=== PATIENT | male | born 1950 | race Caucasian/White ===

== ENCOUNTER 2023-01-11 08:00 | Outpatient (RCR) | payer OTHER, SELFPAY | END 2023-01-11 14:15 | disposition home or self-care (01) | LOC: CR 08:00 | PROVIDERS: PCP Family Medicine | DX: Z95.5 Presence of coronary angioplasty implant and graft (principal); Z95.2 Presence of prosthetic heart valve ==

== ENCOUNTER 2025-01-20 09:45 | Outpatient (OUT) | payer OTHER, SELFPAY ==
--- NOTE | 2025-01-20 09:52 | CA_ITS ---
Patient Name: ISELA POLLACK MR#: [id number] : 1950 Exam Date: 01/20/2025 Ordering Doctor: DR. SABIHA HOLLINS ECHOCARDIOGRAM REPORT PROCEDURE: CA ECHO DOPPLER COMPLETE INDICATIONS: CAD COMPARISON: None. DESCRIPTION: COMPLETE ECHOCARDIOGRAM Real-time transthoracic echocardiography with 2D, M-mode, spectral and color flow Doppler performed. QUALITY: Technical quality was good. LEFT VENTRICLE: Normal chamber size. Thickened septal wall. Global left ventricular systolic function is normal. LV EF: Estimated left ventricular ejection fraction is 55-60%. DIASTOLIC: Grade 2 diastolic dysfunction. ATRIAL SEPTUM: LEFT ATRIUM: Severe dilatation. RIGHT ATRIUM: Moderate dilatation. RIGHT VENTRICLE: Normal chamber size. Normal right ventricular systolic function. TRICUSPID VALVE: Normal mobility and thickness. No stenosis with trivial regurgitation. Mild pulmonary hypertension. RVSP 39 mmHg MITRAL VALVE: Normal mobility and thickness. No evidence of mitral valve stenosis. There is no mitral annular calcification. Mild to moderate mitral regurgitation. AORTIC VALVE: Bio-Prosthetic valve appears well seated in the aortic position with normal doppler flow. Mean systolic gradient is 13 mmHg. Mild perivalvular regurgitation. AORTIC ROOT: Normal diameter and appearance, measuring 3.0 cm. The ascending aorta is mildly dilated measuring 3.7 cm. PULMONIC VALVE: Normal thickness and mobility. No stenosis. Trivial regurgitation. PERICARDIUM: No evidence of pericardial effusion. IVC: Collapses with inspiration. Normal size. PLEURA: CONCLUSION: 1. The left ventricle is normal in size and exhibits normal systolic function. LVEF is estimated at 55 to 60%. 2. Normal right ventricular size and systolic function. 3. Moderate to severe biatrial dilatation. 4. Grade 2 diastolic dysfunction. 5. Bioprosthetic aortic valve is well-seated with normal Doppler flows and mild perivalvular regurgitation. 6. Mild to moderate mitral regurgitation. 7. Mildly elevated right-sided pressures. Adult Echocardiography Procedure Report Left Ventricle LVEDD (3.7 - 5.6 cm): 5.11 cm LVESD (2.2 - 4.0 cm): 3.50 cm LVIVS thickness (0.6 - 1.2 cm): 1.75 cm LVPW thickness (0.5 - 1.0 cm): 1.29 cm e': 0.09 m/s E - e': 7.27 LVOT Max Gradient: 3.36 mm[Hg], 2.75 mm[Hg] LVOT Area (cm2): 0.87 m/s Peak Velocity (LVOT): 0.92 m/s, 0.83 m/s Mean Velocity (LVOT): 0.57 m/s LVOT Diameter 2.24 cm Left Ventricular Ejection Fraction: 62.84 % Left Atrium LA Volume Index (2D A2C): 78.99 ml/m2 Left Atrium Systolic Dimension: 5.59 cm Mitral Valve MV E to A Ratio: 1.09 Mitral Valve A-Wave Peak Velocity: 0.57 m/s Mitral Valve E-Wave Peak Velocity: 0.62 m/s Right Ventricle RV Internal Diastolic Dimension: 4.99 cm Aorta AO Root Diam: 3.00 cm Ascending Ao Diam: 3.70 cm Aortic Valve AoV Area (Peak Colin): 1.50 cm2, 1.82 cm2, 1.75 cm2 AoV Area (VTI): 1.42 cm2, 1.47 cm2, 1.90 cm2 Peak Velocity(Antegrade Flow): 1.98 m/s, 1.86 m/s, 2.73 m/s, 2.57 m/s Peak Gradient(Antegrade Flow): 15.61 mm[Hg], 13.77 mm[Hg], 29.74 mm[Hg], 26.50 mm[Hg] Mean Velocity(Antegrade Flow): 1.30 m/s, 1.48 m/s, 1.63 m/s, 1.45 m/s Mean Gradient(Antegrade Flow): 7.77 mm[Hg], 9.32 mm[Hg], 13.08 mm[Hg], 10.69 mm[Hg] Velocity Time Integral: 48.12 cm, 45.61 cm, 70.40 cm, 57.64 cm Tricuspid Valve Peak Velocity (Regurgitant Flow): 2.87 m/s, 3.03 m/s Pulmonic Valve Mean Gradient: 1.82 mm[Hg], 2.15 mm[Hg] Mean Velocity: 0.63 m/s, 0.70 m/s Peak Velocity: 0.94 m/s Peak Gradient: 3.21 mm[Hg], 3.81 mm[Hg] Right Atrium Right Atrium Systolic Pressure: 53.58 ml, 53.58 ml Dictated by: Diogenes Pearson M.D. on 01/20/2025 at 18:25 Approved by: Diogenes Pearson M.D. on 01/20/2025 at 18:40
== END 2025-01-20 09:46 | disposition home or self-care (01) ==
LOC: CARD 09:47
PROVIDERS: PCP Family Medicine; Visit Provider Chiropractor
DX: I25.10 Atherosclerotic heart disease of native coronary artery without angina pectoris (principal)
CPT/HCPCS: 93306

== ENCOUNTER 2025-05-12 09:37 | Outpatient (OUT) | payer OTHER, SELFPAY ==
--- OUTSIDE RECORDS SUMMARY | 2025-01-16 08:00 | XMS_ITS | Encounter Summary ---
Author Organization [facility] Address [address] [place] [address] Phone Care Team Providers Care Senior Reliability Engineer Name Role Phone Damaris Way MD Primary Care Provider [facility] e [facility], Other Unavailable [phone] Nancie Stack DMD Unavailable [phone] Pavithra Duffy DDS Unavailable + Reason for Visit * ReasonCommentsDental Imaging * Radiology (Routine) - New RequestSpecialtyDiagnoses / ProceduresReferred By ContactReferred To ContactDentistry Diagnoses Missing teeth, acquired Nancie Stack DMD Phone: tel: fax: Referral IDStatusReasonStart DateExpiration DateVisits RequestedVisits [id number] Request/ Encounter Details DateTypeDepartmentCare Team (Latest Contact Info)Vdzxuhoexfm29/17/2025 9:00 AM EDTClinical Support Encounter buckler and lacer [address], [address] [place] [address] Nancie Stack DMD [address] [place] [address] Josue Whiting DMD [address], [address] [place] [address] (work) Encounter for dental examination (Primary Dx) Social History Tobacco UseTypesPacks/DayYears UsedDateSmoking Tobacco: FormerCigarettes Comments:quit in 1991 Alcohol UseStandard Drinks/WeekCommentsNo0 (1 standard drink = 0.6 oz pure alcohol)Weekly until 2013Sex and Gender InformationValueDate RecordedSex Assigned at BirthNot on fileLegal MzwOsty7508/05/2012 8:58 AM ESTGender Identity Not on fileSexual OrientationNot on filedocumented as of this encounter Progress Notes * Sandra Nj DMD - 01/16/2025 9:00 AM EDT See note associated with encounter documented in this encounter Miscellaneous Notes * Addendum Note - Kimani Zapata - 01/16/2025 9:00 AM EDTAddended by: KIMANI ZAPATA on: 05/02/2025 03:16 PM Modules accepted: Orders * Addendum Note - Kimani Zapata - 01/16/2025 9:00 AM EDTAddended by: KIMANI ZAPATA on: 05/05/2025 10:39 AM Modules accepted: Orders * Addendum Note - Kimani Zapata - 01/16/2025 9:00 AM EDTAddended by: KIMANI ZAPATA on: 05/07/2025 08:00 AM Modules accepted: Orders documented in this encounter Plan of Treatment Not on file documented as of this encounter Procedures Procedure NamePriorityDate/TimeAssociated DiagnosisCommentsCONE BEAM CT CAPTURE AND INTERPRETATION WITH FIELD OF VIEW OF BOTH JAWS; WITH OR WITHOUT CRANIUM Wghqtmp4305/07/2025 8:01 AM EST Encounter for dental examination CONE BEAM CT CAPTURE AND INTERPRETATION WITH FIELD OF VIEW OF BOTH JAWS; WITH OR WITHOUT MATHGHISvxyots40/17/2025 9:00 AM EDT Encounter for dental examination documented in this encounter Results * CONE BEAM CT CAPTURE AND INTERPRETATION WITH FIELD OF VIEW OF BOTH JAWS; WITH OR WITHOUT CRANIUM (05/07/2025 8:01 AM EST)ComponentValueRef RangeTest Method Analysis TimePerformed AtPathologist SignatureBSA2.44o9Bauktvqtzt Region LateralityModalityOtherSpecimen (Source)Anatomical Location / Laterality Collection Method / VolumeCollection TimeReceived Time Impressions 05/08/2025 11:29 AM EST 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 Please correlate with clinical findings. Paranasal Sinuses Mucositis, both maxillary sinuses Sinusitis, right posterior ethmoid air cells. Cervical Spine Osteoarthrosis Other Cervical carotid artery calcifications, referral to primary care physician is recommended. Parasellar carotid artery calcifications Vertebral artery calcification [facility] [employer] Division of Oral & Maxillofacial Radiology [address] [place] [address] Narrative 05/08/2025 11:29 AM EST CBCT Report IMAGING TECHNIQUE A Cone Beam Computed Tomography of the skull and cervical vertebrae was examined. There is metallic and motion artifact, which reduces the diagnostic quality of some portions of the volume. IMAGING FINDINGS Dentoalveolar Edentulous maxillae and mandible. Due to metallic artifacts is difficult to assess the bone around present implants. There appears to be bone loss associated with implants in regions of #1, #26-27. Please correlate with clinical findings. TMJ There is no evidence of pathosis in the visualized osseous components of the TMJs. Paranasal Sinuses The portrayed borders of the paranasal sinuses appear to be intact. There is localized thickening of the soft tissue of the right and left maxillary sinus, consistent with mucositis. There is generalized thickening of the soft tissue of some of the posterior right ethmoid air cells, consistent with sinusitis. The ostiomeatal complexes appear to be patent. Airway The visualized portions of the airway appear patent. Cervical Spine Portions of the first through sixth cervical vertebrae are depicted. ?? There are degenerative changes in some of the portrayed portions of these vertebrae; the appearance is consistent with osteoarthrosis. There is a normal width of prevertebral soft tissue. Other There are multiple, prominent, hyperdense entities in the soft tissue of the neck in the region of the right and left carotid arteries. The appearance is consistent with carotid artery calcifications. Referral to primary care physician is recommended. There are multiple hyperdense entities in the parasellar region of the right and left carotid arteries. The appearance is consistent with carotid artery calcifications. There is a hyperdense entity in the clivus region of the right vertebral artery. The appearance is consistent with a vertebral artery calcification. 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 Authorizing ProviderResult TypeResult StatusDouglas A Porr DMDPR - DENTALFinal Result documented in this encounter Visit Diagnoses Diagnosis Encounter for dental examination- Primary Dental examination documented in this encounter Care Teams Team MemberRelationshipSpecialtyStart DateEnd Date Damaris Way MD [facility], Other [address] [facility] [address] [place] [address] 10/29/14 Nancie Stack DMD [address], [address] [place] [address] UgiiendtDgvzianuvqwjco47/4/25 Pavithra Duffy DDS [address] [place] [address] Program ZyicbsqaMkvobnksefdzvf59/4/25documented as of this encounter
--- OUTSIDE RECORDS SUMMARY | 2025-05-12 09:00 | XMS_ITS | Encounter Summary ---
Author Organization [facility] Address [address] [place] [address] Care Team Providers Care Access Manager Name Role Phone Unavailable Primary Care Provider Unavailabl e Reason for Visit * ReasonCommentsNew PatientPatient is here as a new patient to establish care. Patient is transferring care from [place] [facility]. Patient denies chest pain, SOB/PICKETT, leg swelling, abnormal bleeding/bruising, palpitations/racing heart. Patient has no cardiac complaints at this timeCoronary Artery Disease HypertensionHyperlipidemiaNSTEMIAbdominal aortic aneurysm without rupture Aneurysm of left common iliac arteryPeripheral Vascular DiseaseSTEMI involving left anterior descending coronary arteryValve Disorderfollow up of heart disease Encounter Details DateTypeDepartmentCare Team (Latest Contact Info)Jhyutckfxzx75/10/2025 9:00 AM ESTOffice Visit [facility] [address] [address] Chip Claire MD [address] [place] [address] History of transcatheter aortic valve replacement (TAVR) (Primary Dx); Abdominal aortic aneurysm (AAA) without rupture, unspecified part; Nonrheumatic aortic valve insufficiency; Coronary artery disease involving kenaitze coronary artery of kenaitze heart without angina pectoris Social History Tobacco UseTypesPacks/DayYears UsedDateSmoking Tobacco: FormerCigarettes Smokeless Tobacco: Never Tobacco Cessation:Counseling Given: Not Answered Sex and Gender InformationValueDate RecordedSex Assigned at PxnthYfpc86/10/2025 9:27 AM EDTLegal GfyErrm95/10/2025 9:23 AM EDTGender TmdmbpodDimu18/04/2025 9:27 AM EDTSexual OrientationHeterosexual or Txkgeohg64/10/2025 9:27 AM EDTdocumented as of this encounter Last Filed Vital Signs Vital SignReadingTime TakenCommentsBlood Sdbwtubh175/ 8:48 AM EST Kxdir089905/12/2025 8:48 AM ESTTemperature--Respiratory Rate--Oxygen Eofeyrhkfg51% 05/12/2025 8:48 AM ESTInhaled Oxygen Concentration--Tvjker559 kg (240 lb) 05/12/2025 8:48 AM HDNDdbqnr236.5 cm (6' 3 )05/12/2025 8:48 AM ESTBody Mass Blxdd2300/10/2025 8:48 AM ESTdocumented in this encounter Functional Status * BPAnswerDate of WiypqiajvyPnumbq265/ 8:48 AM Jessica Buckley MA * PulseAnswerDate of DyoqvfctlgZjzflm1423/10/2025 8:48 AM Jessica Buckley MA * Audit Alcohol ScreeningQuestionAnswerDate of AssessmentAuthorHow many standard drinks containing alcohol do you have on a typical day? 8:56 AM Jessica Artis MA * Patient PositionAnswerDate of BoiegwgppmCmqmneZptfcmb00/10/2025 8:48 AM Jessica Artis MA * BPAnswerDate of VwrouftaajBvnqqd638/7705/12/2025 8:48 AM Jessica Buckley MA * PulseAnswerDate of TrxewrkhueHkpoew8611/10/2025 8:48 AM Jessica Buckley MA * DyQ2XquuiwCrsv of NplrbrleccCibenb1742/10/2025 8:48 AM Jessica Buckley MA * BP LocationAnswerDate of AssessmentAutrRight arm05/12/2025 8:48 AM Jessica Artis MA * Audit Alcohol ScreeningQuestionAnswerDate of AssessmentAuthorHow many standard drinks containing alcohol do you have on a typical day? 8:56 AM Jessica Artis MA * Patient PositionAnswerDate of NfztegcjteTvfmtwZigfjnz35/10/2025 8:48 AM EST Jessica River MA documented as of this encounter Progress Notes * Chip Claire MD - 05/12/2025 9:00 AM EST Subjective Patient ID: Alexander Velásquez is a 75 y.o. male who presents for New Patient (Patient is here as a new patient to establish care. Patient is transferring care from [place] [facility]. Patient denies chestpain, SOB/PICKETT, leg swelling, abnormal bleeding/bruising, palpitations/racing heart. 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 100% better. No chest pains. Able to carry groceries, able to walk up the stairs. Takes medications daily. Coronary Artery Disease Pertinent negatives include no chest pain, leg swelling or palpitations. Risk factors include hyperlipidemia. Hypertension Pertinent negatives include no chest pain or palpitations. Hyperlipidemia Pertinent negatives include no chest pain. Review of Systems Cardiovascular: Negative for chest pain, palpitations and leg swelling. Gastrointestinal: Negative for blood in stool. Genitourinary: Negative for hematuria. Objective Visit Vitals BP 126/77 (BP Location: Right arm, Patient Position: Sitting) Pulse 63 Physical Exam Vitals reviewed. Constitutional: Appearance: Normal appearance. HENT: Head: Normocephalic and atraumatic. Comments: Unable to extend tongue Mouth/Throat: Comments: Muffled speech Cardiovascular: Rate and Rhythm: Normal rate and regular rhythm. Pulses: Carotid pulses are 2+ on the right side and 2+ on the left side. Radial pulses are 2+ on the right side and 2+ on the left side. Heart sounds: Murmur heard. Systolic murmur is present with a grade of 2/6. Decrescendo diastolic murmur is present with a grade of 1/4. No friction rub. No gallop. Pulmonary: Effort: Pulmonary effort is normal. Breath sounds: Normal breath sounds. Musculoskeletal: Right lower leg: No edema. Left lower leg: No edema. Skin: General: Skin is warm and dry. Neurological: General: No focal deficit present. Mental Status: He is alert and oriented to person, place, and time. Psychiatric: Mood and Affect: Mood normal. Behavior: Behavior normal. Thought Content: Thought content normal. Assessment/Plan Mr. Velásquez is doing well after L main stent TAVR aortic valve. He has mild aortic insufficiency. Last Hgb somewhat low at 10.9, will repeat and check smear, LDH and haptoglobin for hemolysis of paravalvular leak Diagnosis Plan 1. History of transcatheter aortic valve replacement (TAVR) ECG 12 lead unit performed 2. Abdominal aortic aneurysm (AAA) without rupture, unspecified part 3. Nonrheumatic aortic valve insufficiency 4. Coronary artery disease involving kenaitze coronary artery of kenaitze heart without angina pectoris Orders Placed This Encounter Procedures ECG 12 lead unit performed This back office order was created through the Back Office Visit Navigator section. Release to Patient: Immediately No results found for this or any previous visit (from the past 36 hours). Follow up in about 6 months (around 11/09/2025) for Recheck. documented in this encounter Plan of Treatment Not on file documented as of this encounter Procedures Procedure NamePriorityDate/TimeAssociated DiagnosisCommentsECG 12 LEAD UNIT VGXHWMZSVPccmryd20/10/2025 9:18 AM EST History of transcatheter aortic valve replacement (TAVR) documented in this encounter Results * ECG 12 lead unit performed (05/12/2025 9:18 AM EST)Specimen (Source)Anatomical Location / LateralityCollection Method / VolumeCollection TimeReceived Time Narrative Authorizing ProviderResult TypeResult StatusChristopher Dakotah GAMEZ ORDERABLES Final Result documented in this encounter Visit Diagnoses Diagnosis History of transcatheter aortic valve replacement (TAVR)- Primary Abdominal aortic aneurysm (AAA) without rupture, unspecified part Nonrheumatic aortic valve insufficiency Coronary artery disease involving kenaitze coronary artery of kenaitze heart without angina pectoris documented in this encounter
--- OUTSIDE RECORDS SUMMARY | 2025-05-12 09:43 | XMS_ITS | Encounter Summary ---
Author Organization [facility] Address [address] [address] Phone Care Team Providers Care User Experience Architect Name Role Phone Damaris Way MD Primary Care Provider [facility], Other Unavailable [phone] Nancie Stack DMD Unavailable [phone] Pavithra Duffy DDS Unavailable + Reason for Visit * ReasonOnset DateCommentsFollow-up05/08/2025Spoke with Patient and his about waht are next steps, they said there wa no radiaiotn mapping done, no xrays taken to determine if implants are feasible. told them will talk about case in implant meeting 05/09/25 and get answers, Encounter Details DateTypeDepartmentCare Team (Latest Contact Info)Suvfvklvrbg53/06/2025Telephone imaging administrator [address] [place] [address] Other Follow-up (Spoke with Patient and his about waht are next steps, they said there wa no radiaiotn mapping done, no xrays taken to determine if implants are feasible. told them will talk about case in implant meeting 05/09/25 and get answers,) Social History Tobacco UseTypesPacks/DayYears UsedDateSmoking Tobacco: FormerCigarettes Comments:quit in 1991 Alcohol UseStandard Drinks/WeekCommentsNo0 (1 standard drink = 0.6 oz pure alcohol)Weekly until 2013Sex and Gender InformationValueDate RecordedSex Assigned at BirthNot on fileLegal FbbPzxt35/08/2012 8:58 AM ESTGender Identity Not on fileSexual OrientationNot on filedocumented as of this encounter Plan of Treatment Not on file documented as of this encounter Visit Diagnoses Not on filedocumented in this encounter Care Teams Team MemberRelationshipSpecialtyStart DateEnd Date Damaris Way MD [facility] - [facility], Other [address] [facility] [address] [place] [address] 10/29/14 Nancie Stack, DEONDRE [address] [place] [address] DtsqbsmcKirrzktnbpewsl80/4/25 Pavithra Duffy DDS [address] [place] [address] Program ZwudyvikVcscccxgcjbgnk61/4/25documented as of this encounter
--- OUTSIDE RECORDS SUMMARY | 2025-05-12 09:43 | XMS_ITS | Encounter Summary ---
Author Organization [facility] Address [address] [address] Phone Care Team Providers Care Tracer Clerk Name Role Phone Damaris Way MD Primary Care Provider [facility] e [facility], Other Unavailable [phone] Nancie Stack DMD Unavailable [phone] Pavithra Duffy DDS Unavailable + Reason for Visit * ReasonOnset DateCommentsFollow-up05/06/2025Patient's called and wondered when his next appointment was. I called her back and found out that he needs dentures. Gave her the number to [employer] and then transferred her over there. He seeFarrah Stack. Encounter Details DateTypeDepartmentCare Team (Latest Contact Info)Cwvryecelmp50/04/2025Telephone rigger third [address], [address] [place] [address] Other Follow-up (Patient's called and wondered when his next appointment was. I called her back and found out that he needs dentures. Gave her the number to [employer] and then transferred her over there. He sees Dr Stack. ) Social History Tobacco UseTypesPacks/DayYears UsedDateSmoking Tobacco: FormerCigarettes Comments:quit in 1991 Alcohol UseStandard Drinks/WeekCommentsNo0 (1 standard drink = 0.6 oz pure alcohol)Weekly until 2013Sex and Gender InformationValueDate RecordedSex Assigned at BirthNot on fileLegal OxiBysi4608/05/2012 8:58 AM ESTGender Identity Not on fileSexual OrientationNot on filedocumented as of this encounter Plan of Treatment Not on file documented as of this encounter Visit Diagnoses Not on filedocumented in this encounter Care Teams Team MemberRelationshipSpecialtyStart DateEnd Date Damaris Way MD [facility] - [facility], Other [address] [facility] [address] [place] [address] 10/29/14 Nancie Stack, DEONDRE [address], [address] [place] [address] WaxozlpcLibmdxobiykspa40/4/25 Pavithra Duffy DDS [address] [place] [address] Program FjeroqzsHbmekzjcauydzh54/4/25documented as of this encounter
--- OUTSIDE RECORDS SUMMARY | 2025-05-12 09:43 | XMS_ITS | Encounter Summary ---
Author Organization [facility] Address [address] [place] [address] Care Team Providers Care Refrigeration Service Inspector Name Role Phone Unavailable Primary Care Provider Unavailabl e Encounter Details DateTypeDepartmentCare Team (Latest Contact Info)Sdowkxugjot71/10/2025Orders Only [facility] [place] [address] [place] [address] Lelia Shore MA Coronary artery disease, unspecified vessel or lesion type, unspecified whether angina present, unspecified whether [place] or transplanted heart (Primary Dx) Social History Tobacco UseTypesPacks/DayYears UsedDateSmoking Tobacco: FormerCigarettes Smokeless Tobacco: NeverSex and Gender InformationValueDate RecordedSex Assigned at HnmwtLlbq94/10/2025 9:27 AM EDTLegal IndWahc85/10/2025 9:23 AM EDTGender XwftoqjuIsjr18/10/2025 9:27 AM EDTSexual OrientationHeterosexual or Straight 04/11/2025 9:27 AM EDTdocumented as of this encounter Functional Status * BPAnswerDate of DxqfacmgboVpngqp352/7705/12/2025 8:48 AM Jessica Buckley MA * PulseAnswerDate of DtekahbawwRdaknh1362/10/2025 8:48 AM Jessica Buckley MA * Audit Alcohol ScreeningQuestionAnswerDate of AssessmentAuthorHow many standard drinks containing alcohol do you have on a typical day? 8:56 AM Jessica Artis MA * Patient PositionAnswerDate of OooddygppzCyyvpiYjujgon03/10/2025 8:48 AM Jessica Artis MA * BPAnswerDate of LpsexlyubkCrsmmd220/7705/12/2025 8:48 AM Jessica Buckley MA * PulseAnswerDate of McavlcxoouLbsbup8375/10/2025 8:48 AM Jessica Buckley MA * NwD1NixcoiRzyn of FkcgcnasxvDuvxhk4736/10/2025 8:48 AM Jessica Buckley MA * BP LocationAnswerDate of AssessmentAuthorRight arm05/12/2025 8:48 AM Jessica Artis MA * Audit Alcohol ScreeningQuestionAnswerDate of AssessmentAuthorHow many standard drinks containing alcohol do you have on a typical day? 8:56 AM Jessica Artis MA * Patient PositionAnswerDate of XsuadtiurjHhrqzfHvtrpcb84/10/2025 8:48 AM Jessica Artis MA documented as of this encounter Plan of Treatment NameTypePriorityAssociated DiagnosesOrder ScheduleCBC and differentialLabRoutine Coronary artery disease, unspecified vessel or lesion type, unspecified whether angina present, unspecified whether [place] or transplanted heart Expected: 05/12/2025 (Approximate), Expires: 05/12/2026HaptoglobinLabRoutine Coronary artery disease, unspecified vessel or lesion type, unspecified whether angina present, unspecified whether [place] or transplanted heart Expected: 05/12/2025 (Approximate), Expires: 05/12/2026Lactate dehydrogenaseLab Routine Coronary artery disease, unspecified vessel or lesion type, unspecified whether angina present, unspecified whether [place] or transplanted heart Expected: 05/12/2025 (Approximate), Expires: 05/12/2026documented as of this encounter Visit Diagnoses Diagnosis Coronary artery disease, unspecified vessel or lesion type, unspecified whether angina present, unspecified whether [place] or transplanted heart- Primary documented in this encounter
--- OUTSIDE RECORDS SUMMARY | 2025-05-12 09:44 | XMS_ITS | Encounter Summary ---
Author Organization [facility] enter Address [address] [place] [address] Care Team Providers Care Vice President Media Relations Name Role Phone Unavailable Primary Care Provider Unavailabl e Encounter Details DateTypeDepartmentCare Team (Latest Contact Info)Bfuyqpmqhcg46/26/1971 12:00 PM EDT - 10/31/1970 11:59 PM EDTHospital Encounter [facility] [address] [place] [address] Social History Tobacco UseTypesPacks/DayYears UsedDateSmoking Tobacco: Never AssessedSex and Gender InformationValueDate RecordedSex Assigned at BirthNot on fileLegal Sex Male08/05/2012 8:58 AM ESTGender IdentityNot on fileSexual OrientationNot on filedocumented as of this encounter Plan of Treatment Not on file documented as of this encounter Visit Diagnoses Not on filedocumented in this encounter
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
--- OUTSIDE RECORDS SUMMARY | 2025-05-12 09:44 | XMS_ITS | Clinical Summary ---
Author Organization [facility] Address [address] [place] [address] Care Team Providers Care Dive Supervisor Name Role Phone Unavailable Primary Care Provider Unavailabl e Allergies No known active allergies Medications MedicationSigDispense QuantityRefillsLast FilledStart DateEnd DateStatus aspirin 81 mg EC tablet Take 81 mg by mouth in the morning.Active atorvastatin (Lipitor) 80 mg tablet Take 80 mg by mouth in the morning.Active valsartan (Diovan) 160 mg tablet Take 160 mg by mouth in the morning.Active pantoprazole (ProtoNix) 40 mg EC tablet Take 40 mg by mouth before breakfast. Do not crush, chew, or split.Active magnesium oxide (MAGGEL ORAL) Take 420 mg by mouth in the morning.Active Active Problems ProblemNoted DateDiagnosed DateAbdominal aortic aneurysm (AAA) without rupture 05/12/2025 Overview (05/12/2025): May 25, 2010 Entered By: POOJA ARMENTA Comment: U/S: 04/19/10 AAA 3 cm Abdominal aortic modpytcn65/10/2025Accidental drowning and submersion while in bath-tub, rguzika71/10/2025Aneurysm of left common iliac wqvpgp1005/12/2025enign neoplasm of colon05/12/2025 Overview (05/12/2025): May 31, 2010 Entered By: WARREN AVELAR Comment: Repeat Surveillance Colonoscopy DUE 05/2017Jun 19, 2017 Entered By: JOSEFINA BLACKMON Comment: rpt surveillance c-scope 5-10 yrs; due 05/24/2022-05/24/2027 Closed head vwllsb365Cricopharyngeal cgninjkri78/10/2025Benign essential ghvrkenjjfhz71/10/2025Exposure to Agent Gabmbv8805/12/2025Gastroesophageal reflux ayspxsj2805/12/2025Harmful use of cofmacn5405/12/20251885Wnerjlaxwbk15/10/2025History of zbokzbkladmn82/10/2025History of colonic vtibfs0005/12/2025History of endovascular stent graft for abdominal aortic aneurysm (AAA)05/12/2025History of radiation bzhtjwz7905/12/20250479Kwpddvqanwklykictdmh50/10/5177Xijngqkpknusiv00/10/2025 Hypermetropia, qbyzvqjpl92/10/2025Inguinal gevlds0505/12/2025Encounter for screening for eye and ear afbdgotws41/10/2025Other specified counseling 05/12/2025Left against medical edriwn5705/12/2025Peripheral vascular disease, vpmztmhcmaj13/10/2025Near xjphncp3005/12/2025 Overview (05/12/2025): Problem List clean-up per request of Phys. EHR Ramonee Chest pain05/12/2025 Overview (05/12/2025): Problem List clean-up per request of Phys. EHR Cmte Pilar cyst05/12/2025Presence of other vascular implants and sgccog8705/12/2025 Squamous cell carcinoma of mouth05/12/20251255Hhavuqj95/10/2025Tobacco user 05/12/2025Obesity (BMI 30.0-34.9)03/24/2025History of transcatheter aortic valve replacement (TAVR)12/05/2024enign prostatic hmcfopwvfpu75/21/2025oronary ocxlaqzcvlqxahhb84/21/2025Essential qjtgypibqwug15/21/2025History of cerebrovascular ozufoadj86/21/2025Mixed opyziysryxjqsg93/21/2025Traumatic altzmwzrydzx76/21/2025Unspecified effects of drowning and nonfatal submersion, ssdjrme1511/20/2024bnormal igeqjadpspvegzmcvxk60/13/2025ute coronary syndrome 11/12/2024ngina pjgvowcj07/13/2025Septic shock11/12/2024oronary artery disease involving cachil dehe heart without angina hjgyxllc67/12/2025Non-ST elevation (NSTEMI) myocardial fhonfdblog11/12/2025Drowning and submersion after fall into bathtub, undetermined intent, initial cktyhyjlq11/11/2025Fatal submersion-ncygpfpvl96/11/2025S/P cardiac cath10/06/2022Hyperlipidemia LDL goal <7004S/P percutaneous transluminal angioplasty (VICTIM WITNESS ADMINISTRATOR) with stent vnaotapka21/06/2023Severe aortic tzkcyqju20/06/2023STEMI involving left anterior descending coronary tiyeta1510/04/2022History of radiation to head and neck region 08/25/20156791Xctstiuls10/01/2015 Overview (05/12/2025): described as chronic Tongue uexpag1903/25/2014History of tongue gdehtx8703/03/2014 Encounters DateTypeDepartmentCare LwqqKaathuzloqm81/10/2025 9:00 AM ESTOffice Visit [address] [address] Chip Claier MD History of transcatheter aortic valve replacement (TAVR) (Primary Dx); Abdominal aortic aneurysm (AAA) without rupture, unspecified part; Nonrheumatic aortic valve insufficiency; Coronary artery disease involving cachil dehe coronary artery of cachil dehe heart without angina fjsdhnov83/10/2025Orders Only [address] [address] Lelia Shore MA Coronary artery disease, unspecified vessel or lesion type, unspecified whether angina present, unspecified whether cachil dehe or transplanted heart (Primary Dx) from Last 3 Months Family History RelationNameStatusCommentsFatherDeceasedMotherDeceased Social History Tobacco UseTypesPacks/DayYears UsedDateSmoking Tobacco: FormerCigarettes Smokeless Tobacco: Never Tobacco Cessation:Counseling Given: Not Answered Sex and Gender InformationValueDate RecordedSex Assigned at JusiwFhqd63/10/2025 9:27 AM EDTLegal TfjPhut87/10/2025 9:23 AM EDTGender OersonevTnhq24/10/2025 9:27 AM EDTSexual OrientationHeterosexual or Qiyxazyl12/10/2025 9:27 AM EDT Last Filed Vital Signs Vital SignReadingTime TakenCommentsBlood Xwewikyt201/7705/12/2025 8:48 AM EST Luret205205/12/2025 8:48 AM ESTTemperature--Respiratory Rate--Oxygen Hhucbhwryz04% 05/12/2025 8:48 AM ESTInhaled Oxygen Concentration--Yhyqqm946 kg (240 lb) 05/12/2025 8:48 AM PRRGyncaz649.5 cm (6' 3 )05/12/2025 8:48 AM ESTBody Mass Ktebi8143/10/2025 8:48 AM EST Plan of Treatment Health MaintenanceDue DateLast DoneCommentsDepression Xzrdnpnci40/11/1960Fall Risk Ozvnghyql54/11/2013COVID-19 Vaccine ( season)2025 12/23/2024, 04/05/2024, 04/11/2023, Additional history existsAdult Tetanus 313Pneumococcal Vaccine: 50+ LllckEmdpdugdj44/07/2017, 12/10/2014, 07/29/2005Zoster MerpidnfTflhycokr06/22/2019, 03/26/2018Influenza VonjikpDibtqrbqe48/03/2025, 04/05/2024, 04/11/2023, Additional history existsHIB VaccinesAged OutNo longer eligible based on patient's age to complete this topic HPV VaccinesAged OutNo longer eligible based on patient's age to complete this topicIPV VaccinesAged OutNo longer eligible based on patient's age to complete this topicMeningococcal B VaccineAged OutNo longer eligible based on patient's age to complete this topicMeningococcal VaccineAged OutNo longer eligible based on patient's age to complete this topicRotavirus VaccinesAged OutNo longer eligible based on patient's age to complete this topic Procedures Procedure NamePriorityDate/TimeAssociated DiagnosisCommentsECG 12 LEAD UNIT SFFXTGIIPStcvjtv21/10/2025 9:18 AM EST History of transcatheter aortic valve replacement (TAVR) from Last 3 Months Results * ECG 12 lead unit performed (05/12/2025 9:18 AM EST)Specimen (Source)Anatomical Location / LateralityCollection Method / VolumeCollection TimeReceived Time Narrative Authorizing ProviderResult TypeResult StatusChristopher Dakotah MDECG ORDERABLES Final Result from Last [address] [place] [address]
--- OUTSIDE RECORDS SUMMARY | 2025-05-12 09:44 | XMS_ITS | Clinical Summary ---
Author Organization [facility] Address [id number] [address] [place] [address] Care Team Providers Care Recycle Driver Name Role Phone No Pcp, No Pcp Primary Care Provider Unavailabl e Allergies No known active allergies Medications MedicationSigDispense QuantityRefillsLast FilledStart DateEnd DateStatus omeprazole (PriLOSEC) 20 mg capsule Take 20 mg by mouth daily.Active lisinopril (PRINIVIL,ZESTRIL) 5 mg tablet Take 5 mg by mouth daily.Active atorvastatin (LIPITOR) 80 mg tablet Take 80 mg by mouth daily.Active aspirin 81 mg Take 81 mg by mouth daily.Active Active Problems No known active problems Family History Medical HistoryRelationNameCommentsCancerFatherDiabetesFatherHeart diseaseFather HypertensionFatherStrokeFatherCancerMotherDiabetesMotherRelationNameStatus CommentsFatherMother Social History Tobacco UseTypesPacks/DayYears UsedDateSmoking Tobacco: NeverSmokeless Tobacco: NeverAlcohol UseStandard Drinks/WeekCommentsYes0 (1 standard drink = 0.6 oz pure alcohol)ChildcareAnswerDate FphtlpxyGcoxfskkgHfmxbpe40/12/2019EmploymentAnswer Date FrsupckyJuotaiepomGwotjjr72/12/2019Purpose - LifeAnswerDate RecordedPurpose and direction in vesqIojaonx44/11/2021Sex and Gender InformationValueDate RecordedSex Assigned at BirthNot on fileLegal ZzeGqtk6902/05/2015 11:23 AM EDT Gender IdentityNot on fileSexual OrientationNot on file Last Filed Vital Signs Vital SignReadingTime TakenCommentsBlood Ztxxehky056/7310 8:45 AM EDT Dmpxm6108 8:45 AM WIAFwthxirjhcz51.4 ??C (97.5 ??F)04/18/2019 6:27 AM EDTRespiratory Hyet8663 8:45 AM EDTOxygen Eeipxdlife18%04/18/2019 8:45 AM EDTInhaled Oxygen Concentration--Epjlic713.3 kg (251 lb 15.8 oz)04/18/2019 6:27 AM RCCCphlkc062.5 cm (6' 3 )04/18/2019 6:27 AM EDTBody Mass Index31.5 04/18/2019 6:27 AM EDT Plan of Treatment Health MaintenanceDue DateLast DoneCommentsDepression Qgjufhncv05/11/1960Tobacco Xftccghll17/11/1960DTaP,Tdap and Td Vaccines (1 - Tdap)01/10/1967Zoster (Shingles) Vaccine (1 of 2)01/10/1998Fall Risk Dybkdjrxq95/11/2013RSV ( or age 60+ yrs) (1 - 1-dose 75+ series)01/10/2023Influenza Htzvvmi9403/03/2025 Medical Devices ImplantedTypeAreaManufacturerDevice IdentifierShelf Expiration DateModel / Serial / LotLens Iol Ultrasert 19.5d - [id number] 19.5 - [id number] Implanted:Qty: 1 [facility] 04/02/2019 [facility] [employer]/[id number] 19.5 / [id number] 19.5 / [id number] Iol Ultrasert 20.0d - [id number] - [id number] Implanted:Qty: 1 on 04/18/2019 by Richelle Causey MD at [facility]: [id number] 20.0 / [id number] / NA Insurance Care Teams Team MemberRelationshipSpecialtyStart DateEnd Date No Pcp, No Pcp MERARY Farooq [address] [facility] Nhbiwtqv[facility]
--- OUTSIDE RECORDS SUMMARY | 2025-05-12 09:44 | XMS_ITS | Clinical Summary ---
Author Organization [facility] Address [address] [place] [address] Care Team Providers Care Precinct Police Lieutenant Name Role Phone Damaris Way MD Primary Care Provider Unavailabl e [facility], Other Unavailable [phone] Stack Nancie DMD Unavailable [phone] Pavithra Duffy DDS Unavailable + Allergies No known active allergies Medications MedicationSigDispense QuantityRefillsLast FilledStart DateEnd DateStatus Ranitidine HCl 300 MG Cap by PEG Tube route daily.Active simvastatin 40 MG Tab 40 mg by PEG Tube route every evening at 6 PM.Active aspirin 325 MG Tab 325 mg by PEG Tube route daily.Active oxyCODONE-acetaminophen 5-325 MG Tab 1 Tab by PEG Tube route every 8 hours as needed for Pain.Active Vitamin E 400 units tablet Take 2.5 tablets by mouth daily. 75 tablet 5Active Pentoxifylline 400 MG Tab CR tablet ER Take 1 tablet by mouth 2 times daily with meals. 60 tablet 5Active chlorhexidine 0.12 % Solution oral solution TAKE 15ml BY MOUTH TWICE DAILY FOR 7 DAYS 473 mL 5Active Active Problems ProblemNoted DateDiagnosed DateObesity (BMI 30.0-34.9)03/24/2025History of transcatheter aortic valve replacement (TAVR)5Benign prostatic /21/2025Essential pfmwixpbwber98/21/2025Acute coronary syndrome 11/12/2024oronary artery disease involving blackfeet heart without angina pectoris 11/11/2024Non-ST elevation (NSTEMI) myocardial ykuzjdlyyh52/12/2025S/P percutaneous transluminal angioplasty (MANAGER FIBER) with stent uescsrpmk61/06/2023Severe aortic pmxcghdu85/06/2023H/O tongue pjdale9609/19/20147191Eoinqhqwq95/01/2015 Overview (10/03/2014): described as chronic Tongue jofaqc2103/25/2014History of tongue yratui6403/03/2014History of radiation therapyHistory of chemotherapyCricopharyngeal achalasia Encounters DateTypeDepartmentCare WepqGsmqbudnfca06/06/2025Telephone newborn photographer [address] [place] [address], [address] [place] [phone] Other Follow-up (Spoke with Patient and his about waht are next steps, they said there wa no radiaiotn mapping done, no xrays taken to determine if implants are feasible. told them will talk about case in implant meeting 05/09/25 and get answers,)05/06/2025Telephone newborn photographer [address] [place] [address], [address] [place] [phone] Other Follow-up (Patient's called and wondered when his next appointment was. I called her back and found out that he needs dentures. Gave her the number to [facility] and then transferred her over there. He sees Dr Stack. )04/14/2025 Telephone newborn photographer [address] [place] [address], [address] [place] [phone] Gregor Watters DDS Advice Only03/24/2025 11:15 AM EDTOffice Visit newborn photographer [address] [place] [address], [address] [place] [phone] Gregor Watters DDS Postoperative examination (Primary Dx)02/19/2025 1:30 PM EDTOffice Visit newborn photographer [address] [place] [address], [address] [place] [phone] Josue Whiting, DMD Maribell-implantitis, dental (Primary Dx)02/19/2025Refill newborn photographer [address] [place] [address] [address], [address] [place] [phone] Porr Josue A, DMD from Last 3 Months Family History Medical HistoryRelationNameCommentsColorectal CancerFatherNo known problems MotherRelationNameStatusCommentsFatherDeceased (Age 70)MotherDeceased (Age 87) Social History Tobacco UseTypesPacks/DayYears UsedDateSmoking Tobacco: FormerCigarettes Comments:quit in 1991 Alcohol UseStandard Drinks/WeekCommentsNo0 (1 standard drink = 0.6 oz pure alcohol)Weekly until 2013Sex and Gender InformationValueDate RecordedSex Assigned at BirthNot on fileLegal BjxWfik8508/05/2012 8:58 AM ESTGender Identity Not on fileSexual OrientationNot on file Last Filed Vital Signs Vital SignReadingTime TakenCommentsBlood Zhkkfjgo830/9308 1:28 PM EDT Nlqgj602302/19/2025 1:28 PM IQGNoqngwwoajk75.6 ??C (97.9 ??F)10/08/2014 10:41 AM EDTRespiratory Mgkz566010/08/2014 10:41 AM EDTOxygen Wawbskzcub08%10/08/2014 10:41 AM EDTInhaled Oxygen Concentration--Zzfhtl847.1 kg (245 lb)01/16/2025 5:40 PM SPBMgpmwq526.5 cm (6' 3 )01/16/2025 5:40 PM EDTBody Mass Index30.6207 5:40 PM EDT Plan of Treatment Health MaintenanceDue DateLast DoneCommentsDental Oral Exam1948Dental Nagbweayuuw1948HEPATITIS C VIRUS PIXDEBJOP1948COLORECTAL CANCER SCREENING LMXYKKYCPD00/11/1993COVID-19 VACCINE ( season)2025 12/23/2024, 04/05/2024, 04/11/2023, Additional history existsINFLUENZA VACCINE (#1)/10/2023, 04/11/2023, 04/18/20197445LXHMTUP29 PNEUMOCOCCAL VACCINE LAEPOUWeggvjcvn71/07/2017, 12/10/2014, 07/29/2005ZOSTER (SHINGLES) QDHQTUFVenadzlns29/22/2019, 03/26/2018TDAP (ADULT)Zgzcrwcth07/29/2023 RSV BVVPCRKYvkbsuzhs54/03/2025HEP B VACCINEAged OutNo longer eligible based on patient's age to complete this topic Procedures Procedure NamePriorityDate/TimeAssociated DiagnosisCommentsCONE BEAM CT CAPTURE AND INTERPRETATION WITH FIELD OF VIEW OF BOTH JAWS; WITH OR WITHOUT CRANIUM Torewmf7905/07/2025 8:01 AM EST Encounter for dental examination RE-EVALUATION - POST-OPERATIVE OFFICE SHBEIRnvrmsq83/22/2025 11:15 AM EDT Postoperative examination 13 IMPLANT MBICIDLWqgudhr44/20/2025 1:30 PM EDT Maribell-implantitis, dental 7 IMPLANT GGWPIQIVtfjwuo79/20/2025 1:30 PM EDT Maribell-implantitis, dental 3 IMPLANT NFJQWGQKwqyjzy41/20/2025 1:30 PM EDT Maribell-implantitis, dental 11 IMPLANT JSYOMFTTfhxgzp64/20/2025 1:30 PM EDT Maribell-implantitis, dental from Last 3 Months Results * CONE BEAM CT CAPTURE AND INTERPRETATION WITH FIELD OF VIEW OF BOTH JAWS; WITH OR WITHOUT CRANIUM (05/07/2025 8:01 AM EST)ComponentValueRef RangeTest Method Analysis TimePerformed AtPathologist SignatureBSA2.09g4Rxrbpavuwz Region LateralityModalityOtherSpecimen (Source)Anatomical Location / Laterality Collection [...] carotid artery calcifications Vertebral artery calcification [facility] [employer] Division of Oral & Maxillofacial Radiology [address] [place] [address] Narrative 05/08/2025 11:29 AM EST CBCT Report [...] StatusDouglas A Porr DMDPR - DENTALFinal Result from Last 3 Months Insurance on file Care Teams Team MemberRelationshipSpecialtyStart DateEnd Date Damaris Way MD [facility] - [facility]/14[facility]14 [facility], Other [address] [facility] [address] [place] [address] 10/29/14 Nancie Stack DMD [address], [address] [place] [address] OuhnqjyqGewiakmpjnbrpu98/4/25 Pavithra Duffy DDS [address] [place] [address] Program QdkndrqvLcbbtvzsgwaaud99/4/25
[2025-05-12 09:56] LABS: Hematocrit 42.6 % (42.0-54.0); Hemoglobin 13.7 g/dL (14.0-18.0); Mean Corpuscular HGB Conc 32.2 g/dL (29.9-35.2); Mean Corpuscular Hemoglobin 29.1 pg (25.9-34.0); Mean Corpuscular Volume 90.6 fL (80.0-94.0); Platelet Count 201 10^3/uL (150-450); Red Blood Count 4.70 10^6/uL (4.70-6.10); White Blood Count 7.9 10^3/uL (4.0-11.0)
[2025-05-12 10:28] LABS: Band Neutrophils Absolute 0.1 10^3/uL (0.0-0.3); Basophils Abs Manual 0.15 10^3/uL (0.00-0.10); Basophils Percent Manual 2.0 % (0.2-2.0); Eosinophils Absolute Manual 0.47 10^3/uL (0.00-0.70); Eosinophils Percent Manual 6.0 % (0.9-7.0); Lymphocytes Absolute Manual 1.42 10^3/uL (1.20-3.80); Lymphocytes Percent Manual 18.0 % (20.5-60.0); Monocytes Absolute Manual 0.55 10^3/uL (0.30-0.80); Monocytes Percent Manual 7.0 % (1.7-12.0); Segmented Neut Absolute Manual 5.21 10^3/uL (1.4-6.5); Segmented Neutrophils % Manual 66.0 (43.0-75.0)
== END 2025-05-12 09:38 | disposition home or self-care (01) ==
LOC: LAB 09:40
PROVIDERS: PCP Family Medicine; Visit Provider Internal Medicine Cardiovascular Disease
DX: I25.10 Atherosclerotic heart disease of native coronary artery without angina pectoris (principal)
CPT/HCPCS: 36415; 83010; 83615; 85007; 85027